=== PATIENT | male | born 1950 | race Caucasian/White ===

== ENCOUNTER 2020-06-30 11:33 | Outpatient (CLI) | payer MEDICARE, SELFPAY ==
--- NOTE | ~2020-06-30 | MR_ITS ---
EXAMINATION: MR lumbar spine wo con DATE: 06/30/2020 12:23 INDICATION: Low back pain and left-sided lumbar radiculopathy TECHNIQUE: Magnetic resonance imaging (MRI) of the lumbar spine was performed without intravenous con trast. Sequences included sagittal T2-weighted FSE, sagittal T2-weighted FS FSE, sagittal T1-weighted FSE, and axial T2-weighted FSE. COMPARISON: None FINDINGS: 15 degree lumbar dextroscoliosis measured between L2 and L5. Mild right lateral listhesis of L3 on L4 . 2-3 mm retrolisthesis L1 on L2, L2 on L3 and L3 on L4. L3-L5 laminectomies. Vertebral body heights are normal. Severe left-sided disc height loss at L3-L4 with sclerotic left-sided and fibrovascular r ight-sided degenerative endplate changes. Moderate to severe disc height loss at L5-S1 with fibrofatt y and minimal fibrovascular degenerative endplate changes. Mild disc height loss at the remaining lev els between T11-T12 and L4-L5. There are few T1 hyperintense hemangioma is including at T11, L1 and L 3. The conus medullaris terminates at T12-L1. There is normal signal in the caudal spinal cord. Posto perative scarring in the soft tissues posterior to the mid to lower lumbar spine. The following disc levels are specifically discussed: T12-L1: Disc is mildly bulging. There is mild bilateral facet joint osteoarthritis. There is minimal neural foraminal stenosis. There is minimal bilateral central canal stenosis. L1-L2: Disc is mildly bulging. Superimposed annular fissure and left paracentral disc extrusion which extends 1.6 mm cephalad to the level of the inferior endplate of L1 and which measures up to 8 x 5 m m maximal transaxial dimensions. There is hypertrophy of the ligamentum flavum. There is mild bilater al facet joint osteoarthritis. There is moderate left and moderate right neural foraminal stenosis. T here is mild central canal stenosis along with mild narrowing at the left and right lateral recesses. L2-L3: Moderate diffuse disc bulge. There is hypertrophy of the ligamentum flavum. There is mild polina ateral facet joint osteoarthritis. There is moderate left and mild to moderate right neural foraminal stenosis. There is moderate central canal stenosis. L3-L4: Annular fissure with broad-based disc extrusion extending from foraminal zone to foraminal zon e with disc material extending a few millimeters cephalad and caudal to the level of the endplates. S tatus post L3 laminectomy. There is severe right and moderate left facet joint osteoarthritis. There is moderate right and moderate to severe left neural foraminal stenosis. There is severe central jason l stenosis. L4-L5: Disc is bulging. L4 laminectomy. There is severe bilateral facet joint osteoarthritis. There i s moderate right and moderate to severe left neural foraminal stenosis. There is moderate central can al stenosis. L5-S1: Disc is bulging with small right paracentral to foraminal zone disc extrusion. L5 laminectomy. There is altered left and moderate right facet joint osteoarthritis. There is moderate bilateral dre ral foraminal stenosis. There is mild central canal stenosis. IMPRESSION: 1. Mild lumbar dextro scoliosis with severe spondylosis most notable for severe central canal stenosi s at L3-L4 and moderate to severe left neural foraminal stenosis at L3-L4 and L4-L5. 2. Postoperative changes of L3-L5 laminectomies. Reviewed, dictated and finalized at location A. IMPRESSION: 1. Mild lumbar dextro scoliosis with severe spondylosis most notable for severe central canal stenosis at L3-L4 and moderate to severe left neural foraminal s tenosis at L3-L4 and L4-L5. 2. Postoperative changes of L3-L5 laminectomies.
== END 2020-06-30 11:34 | disposition home or self-care (01) ==
LOC: ANHIMG 11:39
PROVIDERS: PCP Internal Medicine; Visit Provider Anesthesiology
DX: M47.24 Other spondylosis with radiculopathy, thoracic region (principal); M41.86 Other forms of scoliosis, lumbar region; Z98.1 Arthrodesis status
CPT/HCPCS: 72148